=== PATIENT | female | born 1950 | race Caucasian/White ===

== ENCOUNTER 2017-12-31 09:52 | Day surgery (SDC) | payer MEDICARE ==
[2017-12-31] MEDS ORDERED: Sodium Chloride 0.9% 10 ML Syringe FLUSH PRN (10:30)
[2017-12-31] MEDS ORDERED: Lactated Ringers 1,000 ML IV SCH (10:30)
[2017-12-31] MEDS ORDERED: Propofol 200 MG/20 ML SDV ONE ×3 (11:14→11:22)
[2017-12-31] MEDS ORDERED: fentaNYL 100 MCG/2 ML SDV ONE ×2 (11:14→11:22)
[2017-12-31] MEDS ORDERED: Midazolam 1 MG/ML 2 ML SDV ONE ×2 (11:14→11:22)
--- NOTE | 2017-12-31 11:26 | PCM.PN ---
- General Info Date of Service: 12/31/17 - Review of Systems Systems Review Comment:: 67-year-old female referred by Maria Luisa Chirinos for colonoscopy. It is been 9 years since her last colon exam. She does have a history of colon polyps. She also has a family history of colon cancer in a grandparent. I have discussed the proposed colonoscopy with the patient. She understands indications options and risks. She agrees to proceed. There is been no recent significant change in her health status. - Patient Data Vitals - Most Recent: Last Vital Signs Temp 98.0 F 12/31/17 10:54 Pulse 82 12/31/17 10:54 Resp 20 12/31/17 10:54 BP 120/74 12/31/17 10:54 Pulse Ox 98 12/31/17 10:54 Weight - Most Recent: 71.668 kg Med Orders - Current: Current Medications Lactated Ringer's (Ringers, Lactated) 1,000 mls @ 125 mls/hr IV ASDIRECTED ENOC Last Admin: 12/31/17 10:41 Dose: 125 mls/hr Sodium Chloride (Saline Flush) 10 ml FLUSH ASDIRECTED PRN PRN Reason: Keep Vein Open Discontinued Medications Fentanyl (Sublimaze) Confirm Administered Dose 100 mcg .ROUTE .STK-MED ONE Stop: 12/31/17 11:15 Midazolam HCl (Versed 1 Mg/Ml) Confirm Administered Dose 2 mg .ROUTE .STK-MED ONE Stop: 12/31/17 11:15 Propofol (Diprivan 20 Ml) Confirm Administered Dose 200 mg .ROUTE .STK-MED ONE Stop: 12/31/17 11:15 Propofol (Diprivan 20 Ml) Confirm Administered Dose 200 mg .ROUTE .STK-MED ONE Stop: 12/31/17 11:15 - Problem List Review Problem List Initiated/Reviewed/Updated: Yes - My Orders Last 24 Hours: My Active Orders 12/31/17 10:30 Patient Status [ADT] Routine Peripheral IV Care [RC] . DIRECTED Verify Patient Consent Obtain [RC] ASDIRECTED Lactated Ringers [Ringers, Lactated] 1,000 ml IV ASDIRECTED Sodium Chloride 0.9% [Saline Flush] 10 ml FLUSH ASDIRECTED PRN Peripheral IV Insertion Adult [OM.PC] Routine - Assessment Assessment:: Personal history of colon polyps - Plan Plan:: Colonoscopy
--- NOTE | 2017-12-31 12:02 | PCM.OPNOTE ---
- General Post-Op/Procedure Note Date of Surgery/Procedure: 12/31/17 Operative Procedure(s): Colonoscopy Findings: Extensive diverticulosis throughout the entire colon Pre Op Diagnosis: History of colon polyps Post-Op Diagnosis: Diverticulosis Anesthesia Technique: MAC Primary Surgeon: Oren Garcia Pathology: none Output, Urine Amount: 0 EBL in mLs: 0 Complications: None Condition: Good Free Text/Narrative:: Intake & Output 12/30/17 12/31/17 12/31/17 22:59 06:59 14:59 Intake Total 600 Balance 600
--- NOTE | 2017-12-31 15:44 | OR ---
Date of Procedure: 12/31/2017 PREOPERATIVE DIAGNOSIS: History of colon polyps. POSTOPERATIVE DIAGNOSIS: Diverticulosis. OPERATION PERFORMED: Colonoscopy. INDICATIONS FOR SURGERY: This 67-year-old female is referred for colonoscopy. It has been 9 years since her last colon exam. She has a history of colon polyps and has noted some irregular bowel function recently. FINDINGS: The patient has extensive diverticulosis throughout her entire colon. Multiple large and small diverticula are noted. These do not appear to be acutely inflamed, but do involve the left and transverse colon as well as the right colon. No other lesions were seen. No acute inflammation was noted. DESCRIPTION OF PROCEDURE: The patient was taken to the operating room. She was given intravenous sedation, and with her in the left lateral decubitus position, digital rectal exam was performed, showing no rectal masses. The Olympus colonoscope was inserted into the rectum. Retroflexed examination of the rectal canal was performed. The scope was then carefully advanced under direct visualization through the entire length of the colon until the cecum was reached. Cecal acquisition was confirmed by noting the normal internal cecal anatomy including the appendiceal orifice and ileocecal valve. After examining the cecum, the scope was slowly withdrawn sequentially re-examining the colonic segments until the entire colon and rectum had been fully examined. The scope was then removed and the patient was taken from the operating room in satisfactory condition. ESTIMATED BLOOD LOSS: Zero. COMPLICATIONS: None. PROGNOSIS: Good. TONNY Garcia MD /[id number]
[2017-12-31 16:19] VITALS: BP 129/64
== END 2017-12-31 14:35 | disposition home or self-care (01) ==
LOC: LL.SDS 09:52
PROVIDERS: ATTEND Surgery
DX: Z12.11 Encounter for screening for malignant neoplasm of colon (principal); K57.30 Diverticulosis of large intestine without perforation or abscess without bleeding; I10 Essential (primary) hypertension; E78.5 Hyperlipidemia, unspecified; Z86.010 Personal history of colon polyps; Z79.899 Other long term (current) drug therapy
CPT/HCPCS: G0105; J2250; J2704; J3010; J7120; 00812

== ENCOUNTER 2022-02-25 09:12 | Emergency (ER) | payer MEDICARE, OTHER ==
[2022-02-25 09:17] VITALS: PULSE 78
[2022-02-25] MEDS ORDERED: Sodium Chloride 0.9% 10 ML Syringe FLUSH PRN (09:31)
[2022-02-25] MEDS ORDERED: Ondansetron 4 MG/2 ML SDV IVPUSH ONE (09:33)
[2022-02-25] MEDS ORDERED: HYDROmorphone 0.5 MG/0.5 ML Syringe IVPUSH ONE (09:33)
[2022-02-25] MEDS ORDERED: Lactated Ringers 1,000 ML IV SCH (09:45)
[2022-02-25 10:04] VITALS: BP 159/68
[2022-02-25 10:22] LABS: ANION GAP 9.4 meq/L (7-15); CHLORIDE,CL 105 mmol/L (98-107); SODIUM,NA 140 mmol/L (136-145)
== END 2022-02-25 11:50 | disposition home or self-care (01) ==
LOC: LL.ED 09:12
DX: K59.00 Constipation, unspecified (principal); E78.00 Pure hypercholesterolemia, unspecified; I10 Essential (primary) hypertension; Z79.899 Other long term (current) drug therapy
CPT/HCPCS: 36415; 74021; 80053; 81003; 83735; 84100; 85025; 86140; 96374; 96375; 99284; 99284-25; J1170; J2405; J7120

== ENCOUNTER 2023-02-12 11:39 | Day surgery (SDC) | payer MEDICARE, OTHER ==
[~2023-02-12 11:39] MED LIST: Propofol 200 MG/20 ML SDV ONE
[2023-02-12] MEDS ORDERED: Sodium Chloride 0.9% 10 ML Syringe FLUSH PRN (12:00)
[2023-02-12] MEDS ORDERED: Lactated Ringers 1,000 ML IV SCH (12:00)
[2023-02-12] MEDS ORDERED: Propofol 200 MG/20 ML SDV ONE (13:33)
[2023-02-12 13:59] VITALS: BP 153/90; PULSE 57
== END 2023-02-12 14:30 | disposition home or self-care (01) ==
LOC: LL.SDS 11:39
PROVIDERS: ATTEND Surgery
DX: Z12.11 Encounter for screening for malignant neoplasm of colon (principal); K57.30 Diverticulosis of large intestine without perforation or abscess without bleeding; F41.9 Anxiety disorder, unspecified; Z86.010 Personal history of colon polyps; Z79.899 Other long term (current) drug therapy
CPT/HCPCS: J2704; J7120